=== PATIENT | female | born 2005 | race Two or more races ===

== ENCOUNTER 2024-04-01 22:01 | Emergency (ER) | payer OTHER ==
[~2024-04-01] VITALS: Ht 162.6 cm; Wt 70.0 kg
[2024-04-01 22:20] VITALS: BP 128/85; PULSE 95; RESP 22; O2SAT 98
== END 2024-04-02 00:24 | disposition left against medical advice (07) ==
LOC: EDBD 22:01 → ER 22:01
DX: R55 Syncope and collapse (principal); Z53.21 Procedure and treatment not carried out due to patient leaving prior to being seen by health care provider
CPT/HCPCS: 93005